=== PATIENT | female | born 1940 | race Caucasian/White ===

== ENCOUNTER 2017-04-07 09:33 | Day surgery (SDC) | payer BC ==
[2017-04-07] MEDS ORDERED: LIDOCAINE HCL/PF 2% SDV 5ML VIAL ONE (09:56)
[2017-04-07] MEDS ORDERED: PROPOFOL 20 ML ONE ×4 (09:57→09:58)
[2017-04-07 10:00] VITALS: BMI 22.4
[2017-04-07 11:03] VITALS: TEMP 97.7
[2017-04-07 11:55] VITALS: BP 150/66; PULSE 56
--- NOTE | 2017-04-08 13:04 | PATH ---
Surgical Pathology Report Patient Name: VICTOR MANUEL BECERRIL [facility]. Rec. #: [id number] /Age/Gender: 1940 (Age: 76) / F Account: [id number] Location: U-ENDOSCOPY Taken: 04/07/2017 Received: 04/07/2017 Reported: 04/08/2017 Physicians: Cosme Cordero M.D. Specimen(s) Received A: BX ANTRUM B: BX GE JUNCTION Clinical History Holden's esophagus Hiatal hernia, gastritis, irregular GE junction, history of Holden's esophagus Final Diagnosis A. STOMACH, ANTRUM, BIOPSY: GASTRIC ANTRAL MUCOSA WITH MODERATE CHRONIC GASTRITIS. IMMUNOSTAIN FOR H. PYLORI IS NEGATIVE FOR ORGANISMS. B. GE JUNCTION, BIOPSY: SQUAMOCOLUMNAR JUNCTIONAL MUCOSA WITH ACTIVE AND CHRONIC INFLAMMATION AND REFLUX TYPE CHANGES. NO INTESTINAL METAPLASIA (HOLDEN'S ESOPHAGUS) IDENTIFIED AND EXAMINED MATERIAL. Electronically Signed Vijay Magana M.D. Gross Description A. Received in formalin, labeled "biopsy antrum" are 2 humphrey, irregular portions of soft tissue measuring 0.3 and 0.6 cm in greatest dimension. The specimens are submitted in toto in one cassette. B. Received in formalin, labeled "biopsy GE junction" are 4 humphrey, irregular portions of soft tissue ranging from 0.1-0.4 cm in greatest dimension. The specimens are submitted in toto in one cassette. 04/07/201704/07/2017
== END 2017-04-07 12:13 | disposition home or self-care (01) ==
LOC: JASU-ENDO 09:33
PROVIDERS: ATTEND Internal Medicine Gastroenterology
PROC: 0DB68ZX Excision of Stomach, Via Natural or Artificial Opening Endoscopic, Diagnostic (ICD-10-PCS; 2017-04-07)
PROC: 0DB48ZX Excision of Esophagogastric Junction, Via Natural or Artificial Opening Endoscopic, Diagnostic (ICD-10-PCS; principal; 2017-04-07 10:30)
DX: K22.70 Barrett's esophagus without dysplasia (principal); K29.00 Acute gastritis without bleeding; K44.9 Diaphragmatic hernia without obstruction or gangrene
CPT/HCPCS: 88305-TC; 88342-TC

== ENCOUNTER 2018-09-23 07:24 | Day surgery (SDC) | payer BC ==
[2018-09-16 10:15] VITALS: BMI 22.4
[2018-09-23 07:50] VITALS: TEMP 97.8
[2018-09-23] MEDS ORDERED: LIDOCAINE HCL/PF 2% SDV 5ML VIAL ONE (08:22)
[2018-09-23] MEDS ORDERED: PROPOFOL 20 ML ONE ×2 (08:22)
[2018-09-23 09:46] VITALS: BP 119/79; PULSE 68
--- NOTE | 2018-09-25 17:10 | PATH ---
Surgical Pathology Report Patient Name: VICTOR MANUEL BECERRIL [facility] Rec. #: [id number] /Age/Gender: 1940 (Age: 78) / F Account: [id number] Location: [facility] Taken: 09/23/2018 Received: 09/23/2018 Reported: 09/25/2018 Physicians: Jesus Jarrett M.D. Specimen(s) Received A: BX DUODENUM B: BX ANTRUM C: BX GE JUNCTION Clinical History History of polyps, history of Torres's Postoperative diagnosis: Gastritis, AVM cecum x3 Final Diagnosis A. DUODENUM, BIOPSY: DUODENUM MUCOSA WITH NO DIAGNOSTIC ABNORMALITIES. NO HISTOLOGIC EVIDENCE OF CELIAC DISEASE. B. ANTRUM, BIOPSY: GASTRIC MUCOSA WITH CHRONIC GASTRITIS. REACTIVE GASTROPATHY PRESENT. IMMUNOSTAIN FOR H. PYLORI IS NEGATIVE. NEGATIVE FOR INTESTINAL METAPLASIA. C. GE JUNCTION, BIOPSY: GASTROESOPHAGEAL JUNCTIONAL MUCOSA WITH REFLUX ESOPHAGITIS. MINUTE DETACHED FRAGMENT OF COLUMNAR EPITHELIUM WITH INTESTINAL METAPLASIA. NEGATIVE FOR DYSPLASIA. Electronically Signed Jose Granados M.D. Gross Description A. Received in formalin, labeled "duodenum biopsy" are 2 humphrey, irregular portions of soft tissue measuring 0.4 and 0.5 cm. in greatest dimension. The specimens are submitted in toto in one cassette. B. Received in formalin, labeled "antrum biopsy" are 2 humphrey, irregular portions of soft tissue averaging 0.3 cm. in greatest dimension. The specimens are submitted in toto in one cassette. C. Received in formalin, labeled "GE junction biopsy" are 2 humphrey, irregular portions of soft tissue measuring 0.3 and 0.4 cm. in greatest dimension. The specimens are submitted in toto in one cassette. 09/24/2018 [facility]09/24/2018
== END 2018-09-23 10:00 | disposition home or self-care (01) ==
LOC: FASU-ENDO 07:24
PROVIDERS: ATTEND Internal Medicine Gastroenterology
PROC: 0DB98ZX Excision of Duodenum, Via Natural or Artificial Opening Endoscopic, Diagnostic (ICD-10-PCS; 2018-09-23)
PROC: 0DB68ZX Excision of Stomach, Via Natural or Artificial Opening Endoscopic, Diagnostic (ICD-10-PCS; 2018-09-23)
PROC: 0DB48ZX Excision of Esophagogastric Junction, Via Natural or Artificial Opening Endoscopic, Diagnostic (ICD-10-PCS; 2018-09-23)
PROC: 0D5H8ZZ Destruction of Cecum, Via Natural or Artificial Opening Endoscopic (ICD-10-PCS; principal; 2018-09-23 08:30)
DX: Z86.010 Personal history of colon polyps (principal); K55.20 Angiodysplasia of colon without hemorrhage; Z13.810 Encounter for screening for upper gastrointestinal disorder; K29.50 Unspecified chronic gastritis without bleeding; K31.9 Disease of stomach and duodenum, unspecified; K21.0 Gastro-esophageal reflux disease with esophagitis; K31.89 Other diseases of stomach and duodenum
CPT/HCPCS: 88305-TC; 88342-TC

== ENCOUNTER 2022-09-28 10:37 | Day surgery (SDC) | payer BC ==
[2022-09-28] MEDS ORDERED: IRON SUCROSE INJECTION 200 MG/100 ML BAG IVPB ONE (11:00)
[2022-09-28] MEDS ORDERED: IRON SUCROSE INJECTION 200 MG in SODIUM CHLORIDE 100 ML IVPB ONE (11:30)
[2022-09-28 12:29] VITALS: BP 130/60; PULSE 65; RESP 16; TEMP 97.9
== END 2022-09-28 12:46 | disposition home or self-care (01) ==
LOC: FINFUSION 10:37 → FM/S 10:38 → FINFUSION 12:46
PROVIDERS: ATTEND Family Medicine
PROC: 3E033GC Introduction of Other Therapeutic Substance into Peripheral Vein, Percutaneous Approach (ICD-10-PCS; principal; 2022-09-28)
DX: D50.9 Iron deficiency anemia, unspecified (principal)
CPT/HCPCS: 96365; J1756

== ENCOUNTER 2022-10-17 14:03 | Day surgery (SDC) | payer BC ==
[2022-10-17] MEDS ORDERED: IRON SUCROSE INJECTION 200 MG in SODIUM CHLORIDE 100 ML IVPB ONE (14:30)
[2022-10-17 15:38] VITALS: BP 130/60; PULSE 64; RESP 18; TEMP 97.9
== END 2022-10-17 15:00 | disposition home or self-care (01) ==
LOC: FINFUSION 14:03 → FM/S 14:11 → FINFUSION 15:00
PROVIDERS: ATTEND Family Medicine
PROC: 3E033GC Introduction of Other Therapeutic Substance into Peripheral Vein, Percutaneous Approach (ICD-10-PCS; principal; 2022-10-17)
DX: D50.9 Iron deficiency anemia, unspecified (principal)
CPT/HCPCS: 96365; J1756

== ENCOUNTER 2022-10-24 13:50 | Day surgery (SDC) | payer BC ==
[2022-10-24] MEDS ORDERED: IRON SUCROSE INJECTION 200 MG in SODIUM CHLORIDE 100 ML IVPB ONE (14:15)
[2022-10-24 19:20] VITALS: BP 130/62; PULSE 68; RESP 18; TEMP 98.9
== END 2022-10-24 16:23 | disposition home or self-care (01) ==
LOC: FINFUSION 13:50 → FM/S 13:53 → FINFUSION 16:23
PROVIDERS: ATTEND Family Medicine
PROC: 3E033GC Introduction of Other Therapeutic Substance into Peripheral Vein, Percutaneous Approach (ICD-10-PCS; principal; 2022-10-24)
DX: D50.9 Iron deficiency anemia, unspecified (principal)
CPT/HCPCS: 96365; J1756